=== PATIENT | male | born 1960 | race Caucasian/White ===

== ENCOUNTER 2017-03-02 15:49 | Emergency (ER) | payer BC ==
--- NOTE | 2017-03-02 17:25 | EDM.PDOC ---
ED HPI GENERAL MEDICAL PROBLEM - General Chief Complaint: Upper Extremity Injury/Pain Stated Complaint: LEFT ARM Time Seen by Provider: 03/02/17 15:50 Source of Information: Reports: Patient, Family History Limitations: Reports: No Limitations - History of Present Illness INITIAL COMMENTS - FREE TEXT/NARRATIVE: 56 y.o.w.m wm came to the ed with his after he fell 3 feet from a ladder and injured his left wrist and r elbow. Pt has full range of motion with some discomfort. Denied any other acute medical/traumatic issues. BP 154/84 pulse 91 temp 36.4 RR 17 pulse ox 96% Onset: Today Onset Date: 03/02/17 Onset Time: 15:00 Duration: Hour(s):, Intermittent Location: Reports: Upper Extremity, Left, Upper Extremity, Right Quality: Reports: Ache, Dull Severity: Moderate Improves with: Reports: Rest Worsens with: Reports: Movement Context: Reports: Trauma (fell 3 feet off a ladder) Associated Symptoms: Reports: No Other Symptoms bilateral arms Pain Score (Numeric/FACES): 2 - Related Data Allergies Allergy/AdvReac Type Severity Reaction Status Date / Time No Known Allergies Allergy Verified 03/02/17 17:40 Home Meds: Home Meds Aspirin [Halfprin] 81 mg PO DAILY 06/22/15 [History] Ibuprofen 200 mg PO ASDIRECTED PRN 06/22/15 [History] Lisinopril 5 mg PO DAILY 03/02/17 [History] atorvaSTATin [Lipitor] 10 mg PO DAILY 03/02/17 [History] Past Medical History HEENT History: Reports: Impaired Vision Cardiovascular History: Reports: High Cholesterol, Hypertension Respiratory History: Reports: None Gastrointestinal History: Reports: None Genitourinary History: Reports: None Musculoskeletal History: Reports: None Neurological History: Reports: None Psychiatric History: Reports: None Endocrine/Metabolic History: Reports: None Hematologic History: Reports: None Immunologic History: Reports: None Oncologic (Cancer) History: Reports: None Dermatologic History: Reports: None - Past Surgical History Head Surgeries/Procedures: Reports: None HEENT Surgical History: Reports: Oral Surgery Cardiovascular Surgical History: Reports: None Respiratory Surgical History: Reports: None GI Surgical History: Reports: Hernia Repair/Other Male Surgical History: Reports: None Musculoskeletal Surgical History: Reports: None Social & Family History - Family History Family Medical History: Noncontributory - Tobacco Use Smoking Status *Q: Never Smoker - Caffeine Use Caffeine Use: Reports: Soda - Recreational Drug Use Recreational Drug Use: No Review of Systems - Review of Systems Review Of Systems: See Below Constitutional: Reports: No Symptoms Eyes: Reports: No Symptoms Ears: Reports: No Symptoms Nose: Reports: No Symptoms Mouth/Throat: Reports: No Symptoms Respiratory: Reports: No Symptoms Cardiovascular: Reports: No Symptoms GI/Abdominal: Reports: No Symptoms Genitourinary: Reports: No Symptoms Musculoskeletal: Reports: Arm Pain, Hand Pain (wrist pain) Skin: Reports: No Symptoms Neurological: Reports: No Symptoms Psychiatric: Reports: No Symptoms ED EXAM, GENERAL - Physical Exam Exam: See Below Exam Limited By: No Limitations General Appearance: Alert, WD/WN, Mild Distress Eye Exam: Bilateral Eye: Normal Inspection Ears: Normal External Exam Ear Exam: Bilateral Ear: Auricle Normal Nose: Normal Inspection Throat/Mouth: Normal Inspection, Normal Lips Head: Atraumatic, Normocephalic Neck: Normal Inspection, Supple, Non-Tender Respiratory/Chest: No Respiratory Distress, Lungs Clear, Normal Breath Sounds, No Accessory Muscle Use, Chest Non-Tender Cardiovascular: Normal Peripheral Pulses, Regular Rate, Rhythm, No Edema Peripheral Pulses: 1+: Radial (L), Radial (R) GI/Abdominal: Normal Bowel Sounds, Soft, Non-Tender, No Organomegaly (Male) Exam: Deferred Rectal (Males) Exam: Deferred Back Exam: Normal Inspection, Full Range of Motion Extremities: Arm Pain (R elbow discomfort, FROM. Left wrist discomfort) Neurological: Alert, Oriented, CN II-XII Intact, Normal Cognition, Normal Gait Psychiatric: Normal Affect, Normal Mood Skin Exam: Warm, Dry, Intact, Normal Color, No Rash Lymphatic: No Adenopathy Course - Vital Signs Text/Narrative:: 56 y.o.w.m wm came to the ed with his after he fell 3 feet from a ladder and injured his left wrist and r elbow. Pt has full range of motion with some discomfort. Denied any other acute medical/traumatic issues. BP 154/84 pulse 91 temp 36.4 RR 17 pulse ox 96% PE: WNWD WF with swelling of left wrist and tender r elbow. FROM of both joints. Imaging: comminuted Fx left distal radius, radial head fx right elbow. Impression: fall off ladder, Comminuted left wrist Fx, closed and r radial head fx r elbow with 2 mm depression of fracture fragment, closed Tx: long forearm splint applied left arm, sling applied to left and right wrist. Ice, pt refused Motrin 6.[address] Antony, hand surgeon at [facility]: F/U this Friday at the Hand clinic 7.[address] Syed, Orth: F/U with the Trauma surgeon Dr. Forrester this for the elbow fx. Dr. Forrester may be able to fix both, left wrist and left wrist. The Kunal stated a splint at his r elbow is not necessary, a sling at his R elbow is fine. Reexam: Pt was doing better Plan: D/C with instructions Last Recorded V/S: Last Vital Signs Temp 37.3 C 03/02/17 19:35 Pulse 76 03/02/17 19:35 Resp 16 03/02/17 19:35 BP 140/81 03/02/17 19:35 Pulse Ox 97 03/02/17 19:35 - Orders/Labs/Meds Orders: Active Orders 24 hr Category Date Time Status Elbow Min 3V Rt [CR] Stat Exams 03/02/17 16:07 Taken Wrist Comp Min 3V Lt [CR] Stat Exams 03/02/17 16:07 Taken Departure - Departure Time of Disposition: 19:24 Disposition: Home, Self-Care 01 Condition: Good Clinical Impression: Wrist fracture, left Qualifiers: Encounter type: initial encounter Fracture type: closed Qualified Code(s): S62.102A - Fracture of unspecified carpal bone, left wrist, initial encounter for closed fracture Sprain of elbow, right Qualifiers: Encounter type: initial encounter Qualified Code(s): S53.401A - Unspecified sprain of right elbow, initial encounter Elbow fracture, right Qualifiers: Encounter type: initial encounter Fracture type: closed Qualified Code(s): S42.401A - Unspecified fracture of lower end of right humerus, initial encounter for closed fracture - Discharge Information Instructions: Wrist Fracture Treated With Immobilization, [id number] Referrals: Ansley Iyer PA [Primary Care Provider] - Forms: ED Department Discharge Additional Instructions: Ice, rest and elevation, motrin for pain, please use the arm sling both arms. Please f/u with hand surgeon, Dr. Antony [phone] on Friday. Please f/u with the trauma surgeon Dr. Forrester on tel: [phone]. Please make an appointment before you show up in their clinic. Please come back if your symptoms get worse acutely. - My Orders Last 24 Hours: My Active Orders 03/02/17 16:07 Elbow Min 3V Rt [CR] Stat Wrist Comp Min 3V Lt [CR] Stat - Assessment/Plan Last 24 Hours: My Active Orders 03/02/17 16:07 Elbow Min 3V Rt [CR] Stat Wrist Comp Min 3V Lt [CR] Stat
[2017-03-02 17:40] VITALS: BP 140/81
== END 2017-03-02 19:35 | disposition home or self-care (01) ==
LOC: FB.ED 15:49
DX: S62.102A Fracture of unspecified carpal bone, left wrist, initial encounter for closed fracture (principal); S42.401A Unspecified fracture of lower end of right humerus, initial encounter for closed fracture; S53.401A Unspecified sprain of right elbow, initial encounter; E78.00 Pure hypercholesterolemia, unspecified; I10 Essential (primary) hypertension; Z79.899 Other long term (current) drug therapy; W11.XXXA Fall on and from ladder, initial encounter
CPT/HCPCS: 29105; 73080-RT; 73110-LT; 99283

== ENCOUNTER 2021-08-01 06:23 | Day surgery (SDC) | payer OTHER ==
[~2021-08-01 06:23] MED LIST: Lactated Ringers 1,000 ML IV SCH; Sodium Chloride 0.9% 10 ML Syringe FLUSH PRN
[2021-08-01] MEDS ORDERED: Rocuronium 100 MG/10 ML MDV IV ONE (06:24)
[2021-08-01] MEDS ORDERED: Propofol 200 MG/20 ML SDV IV ONE (06:24)
[2021-08-01] MEDS ORDERED: Midazolam 1 MG/ML 2 ML SDV IV ONE (06:24)
[2021-08-01] MEDS ORDERED: Ketorolac 30 MG/ML SDV IVPUSH ONE (06:24)
[2021-08-01] MEDS ORDERED: Dexmedetomidine 200 MCG/2 ML SDV IV ONE (06:24)
[2021-08-01] MEDS ORDERED: ceFAZolin 2 GM in Premix Bag 1 BAG IV ONE (07:30)
[2021-08-01] MEDS ORDERED: Bupivacaine 0.5% 30 ML SDV INJECT ONE (07:48)
[2021-08-01] MEDS ORDERED: Lidocaine 1% with EPINEPHrine 1:100,000 20 ML MDV INJECT ONE (07:48)
[2021-08-01 12:05] VITALS: BP 96/52; PULSE 58
== END 2021-08-01 09:40 | disposition home or self-care (01) ==
LOC: FB.SDS 06:23
PROVIDERS: ATTEND Surgery
DX: K42.0 Umbilical hernia with obstruction, without gangrene (principal); E78.00 Pure hypercholesterolemia, unspecified; I10 Essential (primary) hypertension; E66.9 Obesity, unspecified; Z79.899 Other long term (current) drug therapy; Z98.890 Other specified postprocedural states; Z68.31 Body mass index [BMI] 31.0-31.9, adult
CPT/HCPCS: 00750-QZ; 88302; J0690; J1885; J2250; J2704; J3490; J7120

== ENCOUNTER 2024-05-24 06:55 | Day surgery (SDC) | payer OTHER ==
[2024-05-24] MEDS ORDERED: Propofol 200 MG/20 ML SDV IV ONE (06:56)
[2024-05-24] MEDS ORDERED: Lidocaine 2% 100 MG/5 ML Syringe IVPUSH ONE (06:56)
[2024-05-24] MEDS ORDERED: Sodium Chloride 0.9% 10 ML Syringe FLUSH PRN (07:00)
[2024-05-24 07:43] VITALS: BP 145/82; PULSE 91
[2024-05-24] MEDS: Lactated Ringers 1,000 ML IV SCH (08:05)
[2024-05-24 09:21] LABS: EST CRCL DRUG DOSING (CG) 79.48 mL/min
[2024-05-24] MEDS: Diatrizoate Meglumine/Diatrizoate Sodium 37% 30 ML Bottle PO ONE (11:49)
[2024-05-24] MEDS: Iopamidol 755 Mg/ML 100 ML Bottle IV SCH (11:50)
== END 2024-05-24 11:05 | disposition home or self-care (01) ==
LOC: FB.SDS 06:55
PROVIDERS: ATTEND Surgery
DX: C18.7 Malignant neoplasm of sigmoid colon (principal); D12.6 Benign neoplasm of colon, unspecified; K57.31 Diverticulosis of large intestine without perforation or abscess with bleeding; I10 Essential (primary) hypertension; Z79.899 Other long term (current) drug therapy
CPT/HCPCS: 00811; 36415; 45380; 45381; 45384; 74177; 82378; 82565; 88305; J2704; J7120; Q9963; Q9967